=== PATIENT | female | born 1995 | race Caucasian/White ===

== ENCOUNTER 2017-02-23 11:15 | Emergency (ER) | payer OTHER ==
[2017-02-23 11:40] VITALS: BP 100/68
--- NOTE | 2017-02-23 12:07 | UC ---
Respiratory Complaint HPI - HPI Summary HPI Summary: congestion, sore throat and mild cough for about 3-4 days. yesterday while in her kitchen, she begain to feel lightheaded and dizzy and then passed out unwitnessed. no incontinence or tongue bitting. no preceding heart flattering or irregularity. She has playned sports and still excersizes without any chest pain or sob or lightheadedness. No FH of sudden or early heart disease. no pain such as abd pain, chest pain, headache prior to syncope. - History of Current Complaint Chief Complaint: UCRespiratory Stated Complaint: SORE THROAT,COLD SYMPTOMS,HEAD INJURY Time Seen by Provider: 02/23/17 11:33 Hx Last Menstrual Period: 02/18/17 Onset/Duration: Gradual Onset, Lasting Days Timing: Constant Severity Initially: Moderate Severity Currently: Moderate Character: Cough: Nonproductive Aggravating Factors: Nothing Alleviating Factors: Nothing Associated Signs And Symptoms: Positive: URI, Nasal Congestion - Risk Factors Pulmonary Embolism Risk Factors: Oral Contraceptives Cardiac Risk Factors: Negative - Allergies/Home Medications Allergies/Adverse Reactions: Allergies Allergy/AdvReac Type Severity Reaction Status Date / Time No Known Allergies Allergy Verified 02/23/17 11:41 Home Medications: Home Medications Aleve 220mg 440 mg PO ONCE PRN 02/23/17 [History Confirmed 02/23/17] O C 1 tab PO DAILY 02/23/17 [History Confirmed 02/23/17] Oxymetazoline 0.05% NASAL SPR* [Afrin 0.05% NASAL SPRAY*] 2 spray NASAL Q12H PRN 02/23/17 [History Confirmed 02/23/17] PMH/Surg Hx/FS Hx/Imm Hx Previously Healthy: Yes - Surgical History Surgical History: Yes Surgery Procedure, Year, and Place: wisdom teeth - Family History Known Family History: Positive: Other - no early heart disease. - Social History Occupation: Student Alcohol Use: Occasionally Substance Use Type: Marijuana Substance Use Comment - Amount & Last Used: yesterday Smoking Status (MU): Never Smoked Tobacco Review of Systems ENT: Sore Throat, Sinus Congestion Respiratory: Cough Neurological: Other - syncope. Is Patient Immunocompromised?: No All Other Systems Reviewed And Are Negative: Yes Physical Exam Triage Information Reviewed: Yes Appearance: Well-Appearing, No Pain Distress, Well-Nourished Vital Signs: Initial Vital Signs Temp 99.3 F 02/23/17 11:28 Pulse 73 02/23/17 11:28 Resp 20 02/23/17 11:28 BP 100/68 02/23/17 11:28 Pulse Ox 100 02/23/17 11:28 Vital Signs Reviewed: Yes Eye Exam: Normal Eyes: Positive: Conjunctiva Clear ENT: Positive: Pharyngeal erythema, Nasal congestion, TMs normal. Negative: Tonsillar swelling, Tonsillar exudate, Trismus, Muffled/hoarse voice Dental Exam: Normal Neck exam: Normal Neck: Positive: Supple, Nontender, No Lymphadenopathy Respiratory Exam: Normal Respiratory: Positive: Lungs clear, Normal breath sounds, No respiratory distress, No accessory muscle use Cardiovascular: Positive: RRR, No Murmur, Pulses Normal, Brisk Capillary Refill Abdominal Exam: Normal Musculoskeletal Exam: Normal Musculoskeletal: Positive: Strength Intact, ROM Intact, No Edema Neurological Exam: Normal Neurological: Positive: Alert, Muscle Tone Normal, Other: - she ambulates well coordinated narrow based gait without ataxia.. Negative: Fatigued, Lethargic, Unresponsive, Abnormal Muscle Tone Psychological Exam: Normal Skin Exam: Normal UC Diagnostic Evaluation - Laboratory O2 Sat by Pulse Oximetry: 100 - EKG Cardiac Rate: NL Cardiac Rhythm: Sinus: Normal Ectopy: None ST Segment: Normal Respiratory Course/Dx - Course Course Of Treatment: slow onset syncope yesterday in setting of URI. No cardiac risk factors and no worrisome features to suggest cardiac or neurlogic focal etiology. Her exam and vitals are normal now. WE will perform labs and ekg and u preg. f/u with pcp or [facility] to ensure she is getting better. return to ed for any worsening symptoms or recurrance of syncope. - Differential Dx/Diagnosis Provider Diagnoses: syncope. URI. Discharge - Discharge Plan Condition: Good Disposition: HOME Patient Education Materials: Syncope (ED), Upper Respiratory Infection (ED) Additional Instructions: return to school student [facility] in 3-5 days for re evaluation. call 911 for any recurrent symptoms of passing out or nearly passing out.
[2017-02-24 10:15] LABS: Hematocrit 38 % (35-47); Hemoglobin 13.3 g/dl (12.0-16.0); Mean Corpuscular HGB Conc 35 g/dl (31-36); Mean Corpuscular Hemoglobin 33 pg (27-31); Mean Corpuscular Volume 95 fL (80-97); Mean Platelet Volume 11 um3 (7.4-10.4); Red Blood Count 4.04 10^6/ul (4.0-5.4); Red Cell Distribution Width 12 % (10.5-15); White Blood Count 6.9 10^3/ul (3.5-10.8)
[2017-02-24 10:27] LABS: Albumin 3.9 g/dL (3.2-5.2); BUN/Creatinine Ratio 12.7 (8-20); Calcium 8.8 mg/dL (8.6-10.3); EGFR Non-African American 90.2 (>60); Globulin 2.2 g/dL (2-4); Potassium 3.7 mmol/L (3.5-5.0); Total Bilirubin 0.5 mg/dL (0.2-1.0); Total Protein 6.1 g/dL (6.4-8.9)
[2017-02-24 10:53] LABS: Benzodiazepine Urine Screen None Detected (None Detect)
== END 2017-02-23 12:57 | disposition home or self-care (01) ==
LOC: UCCORT 11:15
DX: J06.9 Acute upper respiratory infection, unspecified (principal); R55 Syncope and collapse; Z32.02 Encounter for pregnancy test, result negative
CPT/HCPCS: 36415; 80053; 80307; 84702; 85025; 93005; 99211; G0463